=== PATIENT | female | born 1940 | race Caucasian/White ===

== ENCOUNTER 2024-01-31 11:59 | Emergency (ER) | payer MEDICAID, OTHER ==
[~2024-01-31] VITALS: Ht 160 cm; Wt 76.0 kg
[~2024-01-31 11:59] MED LIST: ENAL-77 PO; GLIM1TAB PO
[2024-01-31 12:12] VITALS: O2SAT 96
[2024-01-31 13:11] VITALS: BP 118/78; PULSE 80; RESP 16; TEMP 98.9
== END 2024-01-31 14:46 | disposition home or self-care (01) ==
LOC: ER 13:19
DX: M25.511 Pain in right shoulder (principal); E11.9 Type 2 diabetes mellitus without complications; I10 Essential (primary) hypertension
CPT/HCPCS: 73030; 99283; A4565